=== PATIENT | male | born 1945 | race Native Hawaiian/Other Pacific Islander ===

== ENCOUNTER 2018-09-02 15:02 | Outpatient (CLI) | payer OTHER ==
[2018-09-02 15:26] LABS: POTASSIUM 4.7 mmol/L (3.6-5.2)
== END 2018-09-02 23:24 | disposition home or self-care (01) ==
LOC: LABW 15:02
PROVIDERS: Internal Medicine Cardiovascular Disease
DX: I42.9 Cardiomyopathy, unspecified (principal)
CPT/HCPCS: 36415; 80048; 83880

== ENCOUNTER 2019-07-21 13:45 | Outpatient (CLI) | payer OTHER ==
[2019-07-21 14:16] LABS: PLATELET COUNT 221 K/uL (142-355)
[2019-07-21 14:28] LABS: POTASSIUM 4.8 mmol/L (3.6-5.2)
== END 2019-07-21 19:29 | disposition home or self-care (01) ==
LOC: LABW 13:45
PROVIDERS: Internal Medicine
DX: E11.22 Type 2 diabetes mellitus with diabetic chronic kidney disease (principal); N18.3 Chronic kidney disease, stage 3 (moderate)
CPT/HCPCS: 36415; 80053; 81000; 82330; 82570; 83036; 83735; 84100; 84155; 85027

== ENCOUNTER 2020-01-30 11:42 | Outpatient (CLI) | payer OTHER ==
[2020-01-30 13:56] LABS: POTASSIUM 6.1 mmol/L (3.6-5.2)
== END 2020-01-30 19:11 | disposition home or self-care (01) ==
LOC: LABW 11:42
PROVIDERS: Nurse Practitioner
DX: I50.9 Heart failure, unspecified (principal)
CPT/HCPCS: 36415; 80048; 83880

== ENCOUNTER 2020-01-31 10:42 | Outpatient (CLI) | payer OTHER ==
[2020-01-31 11:17] LABS: POTASSIUM 5.7 mmol/L (3.6-5.2)
== END 2020-01-31 21:51 | disposition home or self-care (01) ==
LOC: LAB 10:42
PROVIDERS: Internal Medicine Cardiovascular Disease
DX: I11.0 Hypertensive heart disease with heart failure (principal); I50.9 Heart failure, unspecified; E87.5 Hyperkalemia
CPT/HCPCS: 36415; 80048

== ENCOUNTER 2020-05-10 14:22 | Emergency (ER) | payer OTHER ==
[~2020-05-10] VITALS: Ht 185.4 cm; Wt 108.9 kg
[2020-05-10 14:30] VITALS: TEMP 98.6
[2020-05-10 14:55] LABS: PLATELET COUNT 225 K/uL (142-355)
[2020-05-10 15:09] LABS: POTASSIUM 4.9 mmol/L (3.6-5.2)
[2020-05-10 19:04] VITALS: BP 167/67
== END 2020-05-10 19:04 | disposition home or self-care (01) ==
LOC: ED 14:22
PROVIDERS: Family Medicine
DX: S00.03XA Contusion of scalp, initial encounter (principal); S16.1XXA Strain of muscle, fascia and tendon at neck level, initial encounter; S33.5XXA Sprain of ligaments of lumbar spine, initial encounter; V49.40XA Driver injured in collision with unspecified motor vehicles in traffic accident, initial encounter; Y92.89 Other specified places as the place of occurrence of the external cause
CPT/HCPCS: 80053; 81000; 85027; 99283

== ENCOUNTER 2020-10-24 08:58 | Outpatient (CLI) | payer OTHER | END 2020-10-24 20:04 | disposition home or self-care (01) | LOC: MRI 08:58 | PROVIDERS: ATTEND Nurse Practitioner | DX: M54.16 Radiculopathy, lumbar region (principal) ==

== ENCOUNTER 2020-11-14 13:58 | Outpatient (CLI) | payer OTHER ==
[2020-11-14 14:29] LABS: POTASSIUM 5.3 mmol/L (3.6-5.2)
[2020-11-14 16:24] LABS: PLATELET COUNT 228 K/uL (142-355)
== END 2020-11-14 22:14 | disposition home or self-care (01) ==
LOC: LABW 13:58
PROVIDERS: ATTEND Internal Medicine
DX: N18.30 Chronic kidney disease, stage 3 unspecified (principal)
CPT/HCPCS: 36415; 80053; 81000; 82043; 82570; 83735; 84100; 84155; 85007; 85027

== ENCOUNTER 2021-09-19 10:35 | Outpatient (CLI) | payer OTHER | END 2021-09-19 20:30 | disposition home or self-care (01) | LOC: RAD 10:35 | PROVIDERS: ATTEND Internal Medicine Pulmonary Disease | DX: R06.09 Other forms of dyspnea (principal) ==

== ENCOUNTER 2021-10-13 13:40 | Outpatient (CLI) | payer OTHER ==
[2021-10-13 14:04] LABS: PLATELET COUNT 190 K/uL (142-355)
[2021-10-13 14:16] LABS: POTASSIUM 4.7 mmol/L (3.6-5.2)
== END 2021-10-13 19:17 | disposition home or self-care (01) ==
LOC: LABW 13:40 → RAD 13:40 → LABW 19:17
PROVIDERS: ATTEND Nurse Practitioner
DX: R06.02 Shortness of breath (principal); R53.83 Other fatigue; R79.89 Other specified abnormal findings of blood chemistry
CPT/HCPCS: 36415; 80053; 83540; 83550; 83880; 85027